=== PATIENT | female | born 1990 | race Caucasian/White ===

== ENCOUNTER 2017-02-09 19:01 | Outpatient (CLI) | END 2017-02-09 21:23 | disposition home or self-care (01) ==

== ENCOUNTER 2017-03-21 11:49 | Outpatient (CLI) | END 2017-03-21 14:45 | disposition home or self-care (01) ==

== ENCOUNTER 2017-04-02 14:15 | Observation (INO) | END 2017-04-02 18:40 | disposition home or self-care (01) ==

== ENCOUNTER 2017-04-17 05:37 | Inpatient (IN) | END 2017-04-19 14:25 | disposition home or self-care (01) | DRG 775 ==